=== PATIENT | male | born 1980 | race Caucasian/White ===

== ENCOUNTER 2019-11-04 18:11 | Emergency (ER) | payer BC ==
[~2019-11-04] VITALS: Ht 175.3 cm; Wt 90.7 kg
[2019-11-04 18:17] VITALS: Ht 175.3 cm; Wt 90.7 kg
[2019-11-04 19:30] LABS: microscopic required? NO
[2019-11-04 20:08] LABS: UA SPECIFIC GRAVITY >=1.030 (1.005-1.035); urine erythrocyte NEGATIVE (NEGATIVE)
[2019-11-04 21:02] VITALS: BP 142/105
== END 2019-11-04 21:02 | disposition home or self-care (01) ==
LOC: ED 18:11
PROVIDERS: Emergency Medicine
DX: N45.1 Epididymitis (principal); N43.40 Spermatocele of epididymis, unspecified; I86.1 Scrotal varices
CPT/HCPCS: 82962; 87491; 87591; J0696; Q0092